=== PATIENT | female | born 1975 | race Caucasian/White ===

== ENCOUNTER 2017-04-13 12:08 | Emergency (ER) | payer BC ==
[~2017-04-13] VITALS: Ht 162.6 cm; Wt 71.3 kg
[~2017-04-13 12:08] MED LIST: HYDR-2758 PO
--- NOTE | 2017-04-13 12:41 | PHYS DOC ---
Past History Past Medical History: Other Past Surgical History: Tubal ligation Alcohol Use: None Drug Use: None Adult General Chief Complaint Chief Complaint: FOOT INJURY PAIN HPI HPI Patient is a 41 year old female who presents with complaint of right foot pain. Patient states that she awoke approximately one week ago with pain along the lateral aspect of the right foot. Patient states that this has progressively worsened throughout the week. Patient states that she has been taking ibuprofen at home which has offered temporary relief of symptoms. The patient states that the pain is localized along the mid portion of the lateral aspect of the right foot. Patient states that pain does worsen with weightbearing. Patient denies any known trauma or inciting event that caused symptoms. Patient currently rates her pain as 6 out of 10. Review of Systems Review of Systems Constitutional: Denies fever or chills [] Eyes: Denies change in visual acuity, redness, or eye pain [] HENT: Denies nasal congestion or sore throat [] Respiratory: Denies cough or shortness of breath [] Cardiovascular: No additional information not addressed in HPI [] GI: Denies abdominal pain, nausea, vomiting, bloody stools or diarrhea [] : Denies dysuria or hematuria [] Musculoskeletal: Denies back pain or joint pain [] Integument: Denies rash or skin lesions [] Neurologic: Denies headache, focal weakness or sensory changes [] Endocrine: Denies polyuria or polydipsia [] Current Medications Current Medications Current Medications Medications (Trade) Dose Ordered [facility] Start Time Stop Time Status Last Admin Dose Admin Methylprednisolone Acetate (DEPO-Medrol) 80 mg 1X ONCE 04/13/17 12:45 04/13/17 12:46 Allergies Allergies Allergies Coded Allergies Type Severity Reaction Last Updated Verified No Known Drug Allergies 10/18/15 No Physical Exam Physical Exam Constitutional: Well developed, well nourished, no acute distress, non-toxic appearance. [] HENT: Normocephalic, atraumatic, bilateral external ears normal, oropharynx moist, no oral exudates, nose normal. [] Skin: Warm, dry, no erythema, no rash. [] Extremities: No obvious deformity to right foot, tenderness to palpation along base of fifth metatarsal, normal range of motion in all 5 digits of right foot, normal capillary refill. [] Neurologic: Alert and oriented X 3, normal motor function, normal sensory function, no focal deficits noted. [] Current Patient Data Vital Signs Vital Signs Date Time Temp Pulse Resp B/P (MAP) Pulse Ox O2 Delivery O2 Flow Rate FiO2 04/13/17 12:08 97.5 91 18 97 Room Air EKG EKG Not performed[] Radiology/Procedures Radiology/Procedures [] Course & Med Decision Making Course & Med Decision Making Pertinent Labs and Imaging studies reviewed. (See chart for details) X-rays negative for fracture. Patient given Depo-Medrol in the emergency department. Advised to continue on Tylenol as needed for pain. Patient provided with crutches to assist with ambulation with recommended weightbearing as tolerated on the right foot. Advised follow-up with primary doctor in 1 week for reevaluation and possible referral to podiatry if symptoms are not improving. Advised return emergency department for any worsening symptoms. Patient voiced understanding and in agreement with treatment plan. Dragon Disclaimer Dragon Disclaimer This chart was dictated in whole or in part using Voice Recognition software in a busy, high-work load, and often noisy Emergency Department environment. It may contain unintended and wholly unrecognized errors or omissions. Departure Departure: Impression: Primary Impression: Right foot pain Disposition: HOME, SELF-CARE Condition: IMPROVED Referrals: INNA SALCEDO MD (PCP) Patient Instructions: Foot Sprain-Brief, RICE - Routine Care for Injuries Additional Instructions: Follow-up with your primary doctor in 1 week if symptoms are not improving. You may bear weight on your right foot as tolerated. Return emergency department for any worsening symptoms. JIMENA CHAUDHRY MD Apr 13, 2017 12:41
--- NOTE | 2017-04-13 12:43 | RAD ---
FOOT RIGHT 3V Clinical Indication: pain at base of right fifth metatarsal Comparison: None. Findings: No acute fracture or malalignment. The joint spaces are maintained. Bony mineralization is normal for the patient's age. No significant soft tissue abnormality. No radiopaque foreign body. IMPRESSION: No acute fracture or malalignment.
[2017-04-13] MEDS ORDERED: methylPREDNISolone ACETATE 80 MG/ML VIAL. IM ONE (12:45)
[2017-04-13 12:49] VITALS: BP 121/86
== END 2017-04-13 12:49 | disposition home or self-care (01) ==
LOC: ER 12:08
DX: M79.671 Pain in right foot (principal)
CPT/HCPCS: 73630; 96372; 99284; J1040

== ENCOUNTER 2018-11-28 14:26 | Emergency (ER) | payer BC ==
[~2018-11-28] VITALS: Ht 165.1 cm; Wt 71.3 kg
[~2018-11-28 14:26] MED LIST changes: +HYDR-2155 PO; -HYDR-2758 PO
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
[2018-11-28 15:39] VITALS: BP 140/81
== END 2018-11-28 15:40 | disposition home or self-care (01) ==
LOC: ER 14:26
DX: S06.0X0A Concussion without loss of consciousness, initial encounter (principal); S80.12XA Contusion of left lower leg, initial encounter; S80.11XA Contusion of right lower leg, initial encounter; F17.200 Nicotine dependence, unspecified, uncomplicated; V59.49XA Driver of pick-up truck or van injured in collision with other motor vehicles in traffic accident, initial encounter; Y93.I9 Activity, other involving external motion; Y92.488 Other paved roadways as the place of occurrence of the external cause; Y99.8 Other external cause status
CPT/HCPCS: 99281

== ENCOUNTER 2021-03-27 03:30 | Emergency (ER) | payer BC ==
[~2021-03-27] VITALS: Ht 162.6 cm; Wt 72.3 kg
--- NOTE | 2021-03-27 03:43 | PHYS DOC ---
Past History Past Medical History: Other Past Surgical History: Tubal ligation Alcohol Use: None Drug Use: None Adult General HPI HPI Patient is a 45-year-old female who presents with a chief complaint of cough, sore throat and body aches for the last day or 2. States that other people in her family have had several symptoms but nobody is been tested for Covid. She would like to be tested for Covid. States she had not taken any medications at home. Denies any recent travels, traumas, fevers, rash, chest pain, shortness of breath, abdominal pain, nausea, vomiting, dysuria, hematuria or blood in the stool. Review of Systems Review of Systems Review of systems otherwise unremarkable except noted in HPI Allergies Allergies Allergies Coded Allergies Type Severity Reaction Last Updated Verified No Known Drug Allergies 11/28/18 No Physical Exam Physical Exam Constitutional: Well developed, well nourished, no acute distress, non-toxic appearance. [] HENT: Normocephalic, atraumatic, oropharynx moist, mild oropharyngeal erythema with no edema, no oral exudates, nose normal. [] Eyes: conjunctiva normal, no discharge. [] Neck: Normal range of motion, no tenderness, supple, no stridor. [] Cardiovascular:Heart rate regular rhythm, no murmur [] Lungs & Thorax: Bilateral breath sounds clear to auscultation [] Abdomen: Bowel sounds normal, soft, no tenderness, no masses, no pulsatile masses. [] Skin: Warm, dry, no erythema, no rash. [] Extremities: No tenderness, no edema. [] Neurologic: Alert and oriented X 3, no focal deficits noted. [] Psychologic: Affect normal, judgement normal, mood normal. [] EKG EKG [] Radiology/Procedures Radiology/Procedures [] Heart Score C/O Chest Pain: No Risk Factors: Risk Factors: DM, Current or recent (<one month) smoker, HTN, HLP, family history of CAD, obesity. Risk Scores: Risk Factors: DM, Current or recent (<one month) smoker, HTN, HLP, family history of CAD, obesity. Course & Med Decision Making Course & Med Decision Making Patient is a 45-year-old female who presents with a chief complaint of cold/Covid symptoms Vital signs not concerning. Physical exam noted above. Covid swab pending. Chest x-ray not concerning. Given Benadryl, guaifenesin and codeine. Advised on symptomatic treatment at home. Given quarantine/Covid education. Advised to follow-up Sunday with primary care physician. Gave return p recautions to the ED. Patient grateful, verbalized understanding agreed with plan of discharge. [] Dragon Disclaimer Dragon Disclaimer This electronic medical record was generated, in whole or in part, using a voice recognition dictation system. Departure Departure: Impression: Primary Impression: Viral syndrome Disposition: HOME / SELF CARE / HOMELESS Condition: GOOD Referrals: INNA SALCEDO MD (PCP) Patient Instructions: Viral Syndrome Additional Instructions: You have been tested for or diagnosed with COVID-19. It is an infection caused by a new type of coronavirus. COVID-19 will cause cold-like or mild flu symptoms in most. It can cause more severe symptoms like problems breathing in some. There is no treatment for COVID-19. The body will clear the infection over time. Self-care will help to ease discomfort. Steps to Take: Self-Care Rest as needed. Healthy habits may help you feel better. Steps include: Choose healthy foods including fruits and vegetables. Drink water throughout the day. Get plenty of sleep each night. If you smoke, try to quit. It may ease breathing. Avoid alcohol. Keep Others Healthy The virus can spread to others. Droplets are released every time you sneeze or cough. The droplets can get into the mouth, nose, or eyes of people near you and lead to infection. To lower the chances of spreading COVID-19 to others: Stay at home until your doctor has said it is safe to leave. If you tested positive this will mean staying isolated until both of the following are true: At least 7 days have passed since the start of illness. You are free of fever for at least 72 hours without the use of medicine. During this time: - Avoid public areas, events, or transportation. Do not return to work or school until your doctor has said it is safe to do so. - Call ahead if you need to go to a medical center. Let them know you may have COVID-19. It will help them guide you where to go. They may also ask you to wear a facemask when you come to the office. - If you call for emergency medical services, let them know you may have COVID- 19. While at home: - Try to avoid close contact with others. Stay about 6 feet away. - If possible, spend most of your time in a separate room from others. - Use a face mask if you will be in close contact with others such as sharing a room or vehicle. - Have someone wipe down common surfaces in the home. Use household appraisal specialist every day on areas like doorknobs, counters, or sinks. - Cough or sneeze into a tissue. Throw the tissue away right after use. If a tissue is not available, cough or sneeze into your elbow. - Wash your hands often. Wash them after sneezing or coughing. Use soap and water and wash for at least 20 seconds. Alcohol based hand dry cleaner presser can be used if soap and water is not available. - Do not prepare food for others. Avoid sharing personal items like forks, spoons, or toothbrushes. - Avoid close contact with pets while you are sick. There is no evidence of the virus passing to pets. This is a safety step until more is known about this virus. Isolation can be frustrating. Social interaction can help. Keep in touch with friends and family through phone and tech options. You can still interact with others in your home, just keep a safe distance of about 6 feet. Follow-up: Your doctors office will check in with you to see if there are any changes in your health. You may be asked to keep track of symptoms to share with them. They will also let you know when you are clear to be in public again. Problems to Look Out For: Contact your doctor if your recovery is not going as you expect. Get emergency care if you have problems such as: - Trouble breathing - Nonstop chest pain or pressure - Changes in awareness, confusion, or problems waking - Lips or face have bluish color - Worsening of symptoms If you think you have an emergency, call for emergency medical services right away. Scripts Guaifenesin/Codeine Phosphate (GUAIFENESIN-CODEINE SYRUP) 118 Ml Liquid 10 ML PO TID for cough for 3 Days, #90 ML Prov: FRANCINE HERNANDEZ MD 03/27/21 FRANCINE HERNANDEZ MD Mar 27, 2021 03:43
[2021-03-27] MEDS ORDERED: diphenhydrAMINE HCL 25 MG CAPSULE PO ONE ×2 (04:00→04:15)
[2021-03-27] MEDS ORDERED: GUAI118L13 PO (04:10)
[2021-03-27] MEDS ORDERED: guaiFENesin/CODEINE 100mg/10mg 5 ML LIQUID PO PRN (04:15)
[2021-03-27 04:30] VITALS: BP 144/82
--- NOTE | 2021-03-27 04:45 | RAD ---
EXAM: CHEST ONE VIEW. HISTORY: Cough. COMPARISON: None. FINDINGS: A frontal view of the chest is obtained. An opacity in the right cardiophrenic angle may represent an epicardial fat pad. There are no conflue nt infiltrates. There is no pneumothorax or pleural effusion. The heart is not enlarged. IMPRESSION: 1. A triangular opacity in the right cardiophrenic angle is likely an epicardial fat pad. Comparison with older studies could confirm long-term stability. Electronically signed by: Luiz Dsouza MD (03/27/2021 4:42 AM) [facility]
--- NOTE | 2021-03-28 10:47 | NUR ---
IP: Informed pt of negative covid test. pt verbalized understanding.
== END 2021-03-27 04:35 | disposition home or self-care (01) ==
LOC: ER 03:30
DX: B34.9 Viral infection, unspecified (principal); Z20.822 Contact with and (suspected) exposure to COVID-19
CPT/HCPCS: 71045; 87426; 99284; C9803; Q0163; U0003